=== PATIENT | female | born 1950 | race Caucasian/White ===

== ENCOUNTER 2021-06-10 12:46 | Inpatient (IN) ==
[2021-06-10] MEDS ORDERED: Isovue-370 500 ML BOTTLE IVP ONE (13:38)
[2021-06-10 13:50] LABS: Basophils % 0.2 %; Eosinophils % 0.1 %; Hematocrit 36.7 % (35.3-44.9); Hemoglobin 11.4 g/dL (11.5-15.4); Immature Granulocytes % 1.4 % (0-4); Lymphocytes # 0.8 K/mcL (0.6-4.6); Lymphocytes % 7.4 %; Mean Corpuscular HGB Conc 31.1 g/dL (31.6-35.5); Mean Corpuscular Hemoglobin 31.8 pg (28.0-33.3); Mean Corpuscular Volume 102.2 fL (83.0-100.0); Mean Platelet Volume 10.4 fL (9.4-12.4); Monocytes # 0.6 K/mcL (0.0-1.3); Monocytes % 5.6 %; Neutrophils # 9.4 K/mcL (1.6-8.9); Nucleated Red Blood Cells 0.2 /100 WBC (0); Platelet Count 214 K/mcL (140-400); Red Blood Count 3.59 M/mcL (3.82-4.97); Red Cell Distribution Width 15.1 % (11.5-14.5); Segmented Neutrophils % 85.3 %; White Blood Count 11.1 K/mcL (4.3-11.1)
[2021-06-10] MEDS ORDERED: Ipratropium/Albuterol Neb 3 ML IH ONE (13:55)
[2021-06-10 14:33] LABS: BUN/Creatinine Ratio 31 (6-26); Blood Urea Nitrogen 20 mg/dL (8-23); Calcium 9.7 mg/dL (8.6-10.3); Carbon Dioxide 37 mEq/L (23-29); Chloride 92 mEq/L (98-107); Glucose 108 mg/dL (70-105); Osmolality,Calculated 285 (280-300); Potassium 4.7 mEq/L (3.5-5.1); Sodium 136 mEq/L (136-145); eGFR For African Americans > 60 (> 60); eGFR For Non-African Americans > 60 (> 60)
[2021-06-10 14:35] LABS: Prothrombin Time 11.4 Seconds (9.4-12.1)
[2021-06-10 14:38] LABS: Activated Partial Thrombo Time 26.6 Seconds (26.0-36.0)
[2021-06-10 14:41] LABS: Troponin I 0.03 ng/mL (< 0.04)
[2021-06-10 15:24] LABS: ABG Base Excess 8 mEq/L (-2 to 3); ABG HCO3 39 mEq/L (21-27); ABG Oxygen Saturation 92 % (95-98); ABG PCO2 90 mmHg (35-45); ABG PH 7.25 pH Units (7.32-7.45); ABG PO2 78 mmHg (85-104); ABG TCO2 42 mEq/L (20-26)
[2021-06-10 15:45] LABS: Bilirubin,Urine Negative (Negative); Blood,Urine Negative (Negative); Calcium Oxalate Crystals,Urine Present per hpf; Clarity,Urine Turbid (Clear); Color,Urine Yellow (Yellow); Glucose,Urine (UA) Normal (Normal); Hyaline Casts,Urine Moderate per lpf (None Seen); Ketones,Urine Negative (Negative); Leukocyte Esterase,Urine Moderate (Negative); Mucus,Urine Few per lpf (None-Few); Nitrite,Urine Negative (Negative); Protein,Urine 70 mg/dL (Neg-Trace); RBC,Urine 30-50 per hpf (0-3); Specific Gravity,Urine 1.028 (1.010-1.025); Squamous Epithelial Cell,Urine Moderate per hpf (None-Few); Urobilinogen,Urine Normal (Normal); WBC,Urine 15-30 per hpf (0-3)
[2021-06-10] MEDS ORDERED: Ondansetron 4 MG/2 ML VIAL IVP PRN (16:17)
[2021-06-10] MEDS ORDERED: Naloxone 0.4 MG/ML INJ IVP PRN (16:17)
[2021-06-10] MEDS ORDERED: levoFLOXacin 750 MG/150 ML 750 MG/150 ML BAG IVPB ONE (16:20)
[2021-06-10] MEDS ORDERED: *HR* Dextrose 50 % in Water (Syg) 50 ML SYRINGE IVP PRN (16:21)
[2021-06-10] MEDS ORDERED: Dextrose Gel 15 GM/37.5 ML TUBE PO PRN ×2 (16:21)
[2021-06-10] MEDS ORDERED: D5% in Water 1,000 ML IVC PRN (16:21)
[2021-06-10 17:52] LABS: Influenza A PCR Negative (Negative); Influenza B PCR Negative (Negative); Resp. Syncytial Virus PCR Negative (Negative)
[2021-06-10 18:03] LABS: SARS-CoV-2 by PCR (In House) Negative (Negative)
[2021-06-10 18:42] LABS: ABG Base Excess 10 mEq/L (-2 to 3); ABG HCO3 40 mEq/L (21-27); ABG Oxygen Saturation 93 % (95-98); ABG PCO2 84 mmHg (35-45); ABG PH 7.29 pH Units (7.32-7.45); ABG PO2 78 mmHg (85-104); ABG TCO2 43 mEq/L (20-26)
[2021-06-10] MEDS: Budesonide/Formoterol 160/4.5 1 PUFF INH IH SCH (20:20)
[2021-06-10] MEDS: Ipratropium/Albuterol Neb 3 ML IH SCH (20:20)
[2021-06-10] MEDS: Insulin LISPRO 300 UNITS/3 ML VIAL SUBQ SCH ×2 (21:07→23:45)
[2021-06-10] MEDS: *HR* Heparin 5,000 UNIT/ML VIAL SQ SCH (21:07)
[2021-06-10] MEDS: MethylPREDNISolone 40 MG/ML VIAL IVP SCH (23:45)
[2021-06-11] MEDS: Ipratropium/Albuterol Neb 3 ML IH SCH ×7 (00:08→23:37)
[2021-06-11 05:43] LABS: Basophils % 0.1 %; Hemoglobin 10.7 g/dL (11.5-15.4); Immature Granulocytes % 1.4 % (0-4); Lymphocytes # 0.4 K/mcL (0.6-4.6); Lymphocytes % 3.6 %; Mean Corpuscular HGB Conc 30.6 g/dL (31.6-35.5); Mean Corpuscular Hemoglobin 31.5 pg (28.0-33.3); Mean Corpuscular Volume 102.9 fL (83.0-100.0); Mean Platelet Volume 10.6 fL (9.4-12.4); Monocytes # 0.2 K/mcL (0.0-1.3); Monocytes % 2.4 %; Neutrophils # 9.1 K/mcL (1.6-8.9); Platelet Count 192 K/mcL (140-400); Red Cell Distribution Width 15.3 % (11.5-14.5); Segmented Neutrophils % 92.5 %; White Blood Count 9.8 K/mcL (4.3-11.1)
[2021-06-11] MEDS: *HR* Heparin 5,000 UNIT/ML VIAL SQ SCH (05:44)
[2021-06-11] MEDS: Insulin LISPRO 300 UNITS/3 ML VIAL SUBQ SCH ×3 (05:44→17:36)
[2021-06-11 06:13] LABS: BUN/Creatinine Ratio 32 (6-26); Blood Urea Nitrogen 23 mg/dL (8-23); Calcium 9.2 mg/dL (8.6-10.3); Carbon Dioxide 38 mEq/L (23-29); Chloride 90 mEq/L (98-107); Glucose 99 mg/dL (70-105); Magnesium 1.7 mg/dL (1.6-2.6); Osmolality,Calculated 284 (280-300); Potassium 4.8 mEq/L (3.5-5.1); Sodium 135 mEq/L (136-145); eGFR For African Americans > 60 (> 60); eGFR For Non-African Americans > 60 (> 60)
[2021-06-11] MEDS: Budesonide/Formoterol 160/4.5 1 PUFF INH IH SCH ×2 (07:35→20:27)
[2021-06-11] MEDS: MethylPREDNISolone 40 MG/ML VIAL IVP SCH ×3 (07:51→23:40)
[2021-06-11] MEDS: levoFLOXacin 750 MG/150 ML 750 MG/150 ML BAG IVPB SCH (07:51)
[2021-06-11] MEDS ORDERED: *HR* LORazepam 2 MG/ML VIAL ONE (13:29)
[2021-06-11] MEDS ORDERED: *HR* LORazepam 2 MG/ML VIAL IVP ONE (13:34)
[2021-06-11] MEDS ORDERED: *HR* OxyCODONE Immed Rel 5 MG TABLET PO PRN ×2 (15:20→15:21)
[2021-06-11] MEDS ORDERED: Morphine Sulfate Oral CONC 10 MG/0.5 ML ORAL.SYG SL PRN (19:40)
[2021-06-11] MEDS: *HR* Enoxaparin 40 MG/0.4 ML SYRINGE SQ SCH (20:37)
[2021-06-12] MEDS: Insulin LISPRO 300 UNITS/3 ML VIAL SUBQ SCH ×3 (00:09→12:20)
[2021-06-12] MEDS: Morphine Sulfate Oral CONC 10 MG/0.5 ML ORAL.SYG SL PRN ×4 (00:12→20:45)
[2021-06-12] MEDS: Ipratropium/Albuterol Neb 3 ML IH SCH ×6 (04:13→23:22)
[2021-06-12 05:13] LABS: Basophils % 0.2 %; Hematocrit 34.4 % (35.3-44.9); Hemoglobin 10.8 g/dL (11.5-15.4); Immature Granulocytes % 0.9 % (0-4); Lymphocytes # 0.4 K/mcL (0.6-4.6); Lymphocytes % 3.2 %; Mean Corpuscular HGB Conc 31.4 g/dL (31.6-35.5); Mean Corpuscular Hemoglobin 32.2 pg (28.0-33.3); Mean Corpuscular Volume 102.7 fL (83.0-100.0); Mean Platelet Volume 10.8 fL (9.4-12.4); Monocytes # 0.4 K/mcL (0.0-1.3); Monocytes % 3.8 %; Neutrophils # 10.7 K/mcL (1.6-8.9); Nucleated Red Blood Cells 0.3 /100 WBC (0); Platelet Count 211 K/mcL (140-400); Red Blood Count 3.35 M/mcL (3.82-4.97); Red Cell Distribution Width 15.3 % (11.5-14.5); Segmented Neutrophils % 91.9 %; White Blood Count 11.7 K/mcL (4.3-11.1)
[2021-06-12 05:32] LABS: BUN/Creatinine Ratio 42 (6-26); Blood Urea Nitrogen 32 mg/dL (8-23); Carbon Dioxide 37 mEq/L (23-29); Chloride 91 mEq/L (98-107); Glucose 104 mg/dL (70-105); Osmolality,Calculated 283 (280-300); Phosphorous 3.1 mg/dL (2.7-4.5); Potassium 5.2 mEq/L (3.5-5.1); Sodium 133 mEq/L (136-145); eGFR For African Americans > 60 (> 60); eGFR For Non-African Americans > 60 (> 60)
[2021-06-12] MEDS: Budesonide/Formoterol 160/4.5 1 PUFF INH IH SCH ×2 (07:45→19:43)
[2021-06-12] MEDS: *HR* Enoxaparin 40 MG/0.4 ML SYRINGE SQ SCH ×2 (08:16→20:45)
[2021-06-12] MEDS: MethylPREDNISolone 40 MG/ML VIAL IVP SCH ×2 (08:16→16:45)
[2021-06-12] MEDS: levoFLOXacin 750 MG/150 ML 750 MG/150 ML BAG IVPB SCH (08:17)
[2021-06-12] MEDS ORDERED: *HR* LORazepam 2 MG/ML VIAL IVP ONE (11:09)
[2021-06-12] MEDS ORDERED: E-Z-PAQUE (BARIUM SULF) SUSP 1 BOTTLE PO ONE (13:07)
[2021-06-12] MEDS ORDERED: E-Z-HD (BARIUM SULF) SUSPENSION PO ONE (13:07)
[2021-06-12] MEDS: Bisacodyl 10 MG RECTAL SUPPOSITORY RC SCH (20:45)
[2021-06-13] MEDS: MethylPREDNISolone 40 MG/ML VIAL IVP SCH ×4 (00:51→23:14)
[2021-06-13 02:41] LABS: Basophils % 0.1 %; Eosinophils % 0.1 %; Mean Platelet Volume 10.7 fL (9.4-12.4)
[2021-06-13 02:43] LABS: Hematocrit 36.3 % (35.3-44.9); Hemoglobin 11.3 g/dL (11.5-15.4); Immature Platelets 8.4 % (1.1-6.1); Lymphocytes % 2.9 %; Mean Corpuscular HGB Conc 31.1 g/dL (31.6-35.5); Mean Corpuscular Hemoglobin 31.7 pg (28.0-33.3); Mean Corpuscular Volume 101.7 fL (83.0-100.0); Monocytes # 0.7 K/mcL (0.0-1.3); Monocytes % 5.5 %; Neutrophils # 10.8 K/mcL (1.6-8.9); Nucleated Red Blood Cells 0.2 /100 WBC (0); Platelet Count 181 K/mcL (140-400); Red Blood Count 3.57 M/mcL (3.82-4.97); Red Cell Distribution Width 15.3 % (11.5-14.5); Segmented Neutrophils % 90.4 %; White Blood Count 11.9 K/mcL (4.3-11.1)
[2021-06-13 02:44] LABS: Lymphocytes # 0.4 K/mcL (0.6-4.6)
[2021-06-13 03:03] LABS: Calcium 8.8 mg/dL (8.6-10.3); Magnesium 2.2 mg/dL (1.6-2.6); Phosphorous 3.4 mg/dL (2.7-4.5); Potassium 5.5 mEq/L (3.5-5.1)
[2021-06-13] MEDS: Ipratropium/Albuterol Neb 3 ML IH SCH ×6 (03:52→23:09)
[2021-06-13] MEDS: Budesonide/Formoterol 160/4.5 1 PUFF INH IH SCH ×2 (08:03→19:37)
[2021-06-13] MEDS: *HR* Enoxaparin 40 MG/0.4 ML SYRINGE SQ SCH ×2 (08:08→23:11)
[2021-06-13] MEDS: levoFLOXacin 750 MG/150 ML 750 MG/150 ML BAG IVPB SCH (08:09)
[2021-06-13] MEDS: Morphine Sulfate Oral CONC 10 MG/0.5 ML ORAL.SYG SL PRN ×2 (13:56→23:08)
[2021-06-13] MEDS: Bisacodyl 10 MG RECTAL SUPPOSITORY RC SCH (23:09)
[2021-06-14 03:03] LABS: Basophils % 0.1 %; Hematocrit 35.1 % (35.3-44.9); Hemoglobin 11.1 g/dL (11.5-15.4); Immature Granulocytes % 1.1 % (0-4); Lymphocytes # 0.2 K/mcL (0.6-4.6); Lymphocytes % 1.7 %; Mean Corpuscular HGB Conc 31.6 g/dL (31.6-35.5); Mean Corpuscular Volume 101.2 fL (83.0-100.0); Mean Platelet Volume 10.6 fL (9.4-12.4); Monocytes # 0.5 K/mcL (0.0-1.3); Monocytes % 5.1 %; Neutrophils # 9.1 K/mcL (1.6-8.9); Nucleated Red Blood Cells 0.4 /100 WBC (0); Platelet Count 199 K/mcL (140-400); Red Blood Count 3.47 M/mcL (3.82-4.97); Red Cell Distribution Width 15.5 % (11.5-14.5); White Blood Count 9.9 K/mcL (4.3-11.1)
[2021-06-14 03:18] LABS: BUN/Creatinine Ratio 49 (6-26); Blood Urea Nitrogen 50 mg/dL (8-23); Calcium 8.7 mg/dL (8.6-10.3); Carbon Dioxide 39 mEq/L (23-29); Chloride 93 mEq/L (98-107); Glucose 106 mg/dL (70-105); Magnesium 2.6 mg/dL (1.6-2.6); Osmolality,Calculated 298 (280-300); Phosphorous 3.2 mg/dL (2.7-4.5); Potassium 5.1 mEq/L (3.5-5.1); Sodium 137 mEq/L (136-145); eGFR For African Americans > 60 (> 60); eGFR For Non-African Americans 54 (> 60)
[2021-06-14] MEDS: Ipratropium/Albuterol Neb 3 ML IH SCH ×6 (03:22→23:33)
[2021-06-14] MEDS: Budesonide/Formoterol 160/4.5 1 PUFF INH IH SCH ×2 (07:37→20:05)
[2021-06-14] MEDS: Morphine Sulfate Oral CONC 10 MG/0.5 ML ORAL.SYG SL PRN ×4 (08:21→21:05)
[2021-06-14] MEDS: levoFLOXacin 750 MG/150 ML 750 MG/150 ML BAG IVPB SCH (08:22)
[2021-06-14] MEDS: *HR* Enoxaparin 40 MG/0.4 ML SYRINGE SQ SCH ×2 (08:22→21:06)
[2021-06-14] MEDS: MethylPREDNISolone 40 MG/ML VIAL IVP SCH ×2 (08:22→16:03)
[2021-06-14] MEDS: Bisacodyl 10 MG RECTAL SUPPOSITORY RC SCH (21:06)
[2021-06-15 02:37] LABS: BUN/Creatinine Ratio 56 (6-26); Blood Urea Nitrogen 53 mg/dL (8-23); Calcium 8.6 mg/dL (8.6-10.3); Carbon Dioxide 39 mEq/L (23-29); Chloride 93 mEq/L (98-107); Glucose 107 mg/dL (70-105); Magnesium 2.8 mg/dL (1.6-2.6); Osmolality,Calculated 297 (280-300); Phosphorous 3.2 mg/dL (2.7-4.5); Potassium 5.2 mEq/L (3.5-5.1); Sodium 136 mEq/L (136-145); eGFR For African Americans > 60 (> 60); eGFR For Non-African Americans 58 (> 60)
[2021-06-15] MEDS: MethylPREDNISolone 40 MG/ML VIAL IVP SCH ×3 (03:05→17:46)
[2021-06-15] MEDS: Ipratropium/Albuterol Neb 3 ML IH SCH ×6 (03:58→23:18)
[2021-06-15] MEDS: *HR* Enoxaparin 40 MG/0.4 ML SYRINGE SQ SCH ×2 (07:24→20:05)
[2021-06-15] MEDS: levoFLOXacin 750 MG/150 ML 750 MG/150 ML BAG IVPB SCH (07:25)
[2021-06-15] MEDS: Morphine Sulfate Oral CONC 10 MG/0.5 ML ORAL.SYG SL PRN ×3 (07:26→20:05)
[2021-06-15] MEDS: Budesonide/Formoterol 160/4.5 1 PUFF INH IH SCH ×2 (07:43→20:10)
[2021-06-15] MEDS ORDERED: Gadolinium Contrast Agent (WT Based) IV PRN (14:59)
[2021-06-15] MEDS ORDERED: Isovue-370 500 ML BOTTLE IVP ONE (14:59)
[2021-06-15] MEDS: Sennosides/Docusate Sodium TABLET PO SCH (20:05)
[2021-06-16] MEDS: MethylPREDNISolone 40 MG/ML VIAL IVP SCH ×3 (00:28→15:03)
[2021-06-16 01:28] LABS: BUN/Creatinine Ratio 62 (6-26); Blood Urea Nitrogen 57 mg/dL (8-23); Calcium 8.7 mg/dL (8.6-10.3); Carbon Dioxide 42 mEq/L (23-29); Chloride 95 mEq/L (98-107); Glucose 112 mg/dL (70-105); Magnesium 3.1 mg/dL (1.6-2.6); Osmolality,Calculated 307 (280-300); Phosphorous 3.8 mg/dL (2.7-4.5); Potassium 5.5 mEq/L (3.5-5.1); Sodium 140 mEq/L (136-145); eGFR For African Americans > 60 (> 60); eGFR For Non-African Americans > 60 (> 60)
[2021-06-16] MEDS: Ipratropium/Albuterol Neb 3 ML IH SCH ×6 (03:45→22:49)
[2021-06-16] MEDS: Budesonide/Formoterol 160/4.5 1 PUFF INH IH SCH (07:50)
[2021-06-16] MEDS: Sennosides/Docusate Sodium TABLET PO SCH (08:28)
[2021-06-16] MEDS: *HR* Enoxaparin 40 MG/0.4 ML SYRINGE SQ SCH (08:28)
[2021-06-16] MEDS: levoFLOXacin 750 MG/150 ML 750 MG/150 ML BAG IVPB SCH (08:29)
[2021-06-16] MEDS: *HR* FentaNYL (PF) 100 MCG/2 ML VIAL IVP PRN ×5 (13:23→23:46)
[2021-06-16 18:34] VITALS: BP 125/76; PULSE 112; TEMP 96.8
[2021-06-16 20:06] VITALS: O2SAT 100
[2021-06-17] MEDS: *HR* LORazepam 2 MG/ML VIAL IVP PRN ×2 (00:16→02:15)
[2021-06-17] MEDS: *HR* FentaNYL (PF) 100 MCG/2 ML VIAL IVP PRN ×3 (00:46→02:53)
[2021-06-17] MEDS: Ipratropium/Albuterol Neb 3 ML IH SCH (03:35)
== END 2021-06-17 06:30 | disposition expired | DRG 180 ==
LOC: 2NENU 12:46 → EMEROOARM 12:46 → SUATTDRO 19:32 → 2NENU 21:00
PROVIDERS: ADMIT Hospitalist; ATTEND Internal Medicine